=== PATIENT | female | born 1970 | race Caucasian/White ===

== ENCOUNTER → 2016-03-20 | Outpatient (CLI) | payer BC ==
[~2016-03-20] MED LIST: DUO-KAPS1 CAP PO; FOLIC ACID 11 MG/TA1 PO; MOTRIN 800800 MG/TAB PO; OMEGA 31000 MG PO
== END ==
LOC: BHSO 09:50
DX: F41.1 Generalized anxiety disorder (principal)

== ENCOUNTER → 2016-05-02 | Outpatient (CLI) | payer BC | LOC: BHSO 10:46 | DX: F33.1 Major depressive disorder, recurrent, moderate (principal) ==

== ENCOUNTER → 2016-05-10 | Outpatient (CLI) | payer BC | LOC: BHSO 08:50 | DX: F31.81 Bipolar II disorder (principal) ==

== ENCOUNTER → 2016-06-14 | Outpatient (CLI) | payer BC | LOC: BHSO 09:46 | DX: F33.1 Major depressive disorder, recurrent, moderate (principal) ==

== ENCOUNTER → 2016-06-19 | Outpatient (CLI) | payer BC | LOC: BHSO 09:05 | DX: F41.1 Generalized anxiety disorder (principal) ==

== ENCOUNTER → 2016-07-05 | Outpatient (CLI) | payer BC | LOC: BHSO 09:52 | DX: F31.81 Bipolar II disorder (principal) ==

== ENCOUNTER → 2016-08-23 | Outpatient (CLI) | payer BC | LOC: BHSO 08:51 | DX: F41.1 Generalized anxiety disorder (principal) ==

== ENCOUNTER → 2016-09-20 | Outpatient (CLI) | payer BC | LOC: BHSO 10:49 | DX: F41.1 Generalized anxiety disorder (principal) ==

== ENCOUNTER → 2016-10-04 | Outpatient (CLI) | payer BC | LOC: BHSO 08:55 | DX: F31.81 Bipolar II disorder (principal) ==

== ENCOUNTER → 2016-11-07 | Outpatient (CLI) | payer BC | LOC: BHSO 09:50 | DX: F31.81 Bipolar II disorder (principal) ==

== ENCOUNTER → 2017-02-27 | Outpatient (CLI) | payer BC ==
[2017-02-27 16:21] LABS: BASO % 0.3 % (0.0-2.0); EOS # 0.1 (0.0-0.7); GRAN # 6.5 (1.4-6.5); GRAN % 60.7 % (42.2-75.2); HEMATOCRIT 37.1 % (37.0-47.0); HEMOGLOBIN 12.7 g/dl (12.5-16.0); LYMPH # 3.4 (1.2-3.4); LYMPH % 31.6 % (20.0-51.0); MEAN CELL VOLUME 92 fl (80.0-100.0); MEAN CORPUSCULAR HEMOGLOBIN 32 pg (27.0-31.0); MEAN CORPUSCULAR HGB CONC 34 g/dl (33.0-37.0); MEAN PLATELET VOLUME 8.9 fl (7.4-10.4); MONO # 0.7 (0.1-0.6); PLATELET COUNT 436 K/mm3 (130-400); RED BLOOD COUNT 4.02 M/mm3 (4.10-5.30); WHITE BLOOD COUNT 10.8 K/mm3 (4.8-10.8)
[2017-02-27 16:40] LABS: ADJUSTED CALCIUM 8.8 mg/dL (8.4-10.2); ALBUMIN 3.6 gm/dL (3.5-5.0); BILIRUBIN,TOTAL 1.4 mg/dL (0.0-1.0); CALCIUM 8.5 mg/dL (8.4-10.2); CREATININE, serum 0.76 mg/dL (0.52-1.25); POTASSIUM 3.5 mmol/L (3.4-5.0); TOTAL PROTEIN 6.1 gm/dL (6.4-8.2)
== END ==
LOC: COL.LAB 15:53
PROVIDERS: Family Medicine
DX: R10.13 Epigastric pain (principal)

== ENCOUNTER → 2017-03-20 | Outpatient (CLI) | payer BC | LOC: BHSO 08:56 | DX: F31.81 Bipolar II disorder (principal) ==

== ENCOUNTER → 2017-03-21 | Outpatient (CLI) | payer BC | LOC: BHSO 10:43 | DX: F41.1 Generalized anxiety disorder (principal) | CPT/HCPCS: G0463 ==

== ENCOUNTER → 2017-09-17 | Outpatient (CLI) | payer BC | LOC: BHSO 08:55 | DX: F31.81 Bipolar II disorder (principal) ==

== ENCOUNTER → 2018-01-21 | Outpatient (CLI) | payer BC | LOC: BHSO 08:53 | DX: F31.81 Bipolar II disorder (principal) ==

== ENCOUNTER → 2018-03-17 | Outpatient (CLI) | payer BC | LOC: BHSO 10:38 | DX: F31.81 Bipolar II disorder (principal) ==

== ENCOUNTER → 2018-04-21 | Outpatient (CLI) | payer BC | LOC: BHSO 08:50 | DX: F31.81 Bipolar II disorder (principal) ==

== ENCOUNTER → 2018-08-11 | Outpatient (CLI) | payer BC | LOC: BHSO 08:51 | DX: F31.81 Bipolar II disorder (principal) ==

== ENCOUNTER → 2018-10-06 | Outpatient (CLI) | payer BC | LOC: BHSO 09:00 | DX: F31.81 Bipolar II disorder (principal) ==

== ENCOUNTER → 2018-11-28 | Outpatient (CLI) | payer BC | LOC: BHSO 15:51 | DX: F31.81 Bipolar II disorder (principal) ==

== ENCOUNTER → 2019-02-02 | Outpatient (CLI) | payer BC | LOC: BHSO 15:46 | DX: F31.81 Bipolar II disorder (principal) ==

== ENCOUNTER 2019-04-13 06:09 | Outpatient (CLI) | payer BC ==
[~2019-04-13] VITALS: Ht 162.6 cm; Wt 73.2 kg
[2019-04-13] VITALS (25 sets, daily range): BP systolic 93–136; BP diastolic 53–89; PULSE 52–87; TEMP 98.5
[~2019-04-13 06:09] MED LIST changes: -OMEGA 31000 MG PO; +OMEGA-3 1000 MG1 CAP PO
[2019-04-13 07:16] LABS: BASO # 0.1 (0.0-0.2); BASO % 1.1 % (0.0-2.0); EOS # 0.3 (0.0-0.7); EOS % 4.4 % (0-4.0); GRAN # 2.5 (1.4-6.5); HEMATOCRIT 38.8 % (37.0-47.0); HEMOGLOBIN 13.1 g/dl (12.5-16.0); LYMPH # 2.5 (1.2-3.4); LYMPH % 43.3 % (20.0-51.0); MEAN CELL VOLUME 91 fl (80.0-100.0); MEAN CORPUSCULAR HEMOGLOBIN 31 pg (27.0-31.0); MEAN CORPUSCULAR HGB CONC 34 g/dl (33.0-37.0); MEAN PLATELET VOLUME 8.8 fl (7.4-10.4); MONO # 0.4 (0.1-0.6); MONO % 7.2 % (1.7-9.3); PLATELET COUNT 272 K/mm3 (130-400); RED BLOOD COUNT 4.25 M/mm3 (4.10-5.30); REDCELL DISTRIBUTION WIDTH-CV 12.3 % (11.5-14.5)
[2019-04-13 07:18] LABS: INR 0.9 (0.8-3.0); PROTHROMBIN TIME 10.6 SECONDS (9.7-12.8)
[2019-04-13 07:21] LABS: PARTIAL THROMBOPLASTIN TIME 32.4 SECONDS (26.0-37.0)
[2019-04-13] MEDS ORDERED: TYLENOL 500MG500 MG PO (07:34)
[2019-04-13] MEDS ORDERED: MIRENA52 MG IY (07:35)
[2019-04-13] MEDS ORDERED: BRINTELLIX20 PO (07:37)
[2019-04-13] MEDS ORDERED: PROAIR HFA0.09 MG/AC IH (07:41)
--- NOTE | 2019-04-13 07:49 | NUR ---
Pt to procedure,report to KASANDRA Egan.
--- NOTE | 2019-04-13 07:55 | NUR ---
Pt to ct per bed. Pt ambulates into Ct and is placed prone on table. Monitors applied.
--- NOTE | 2019-04-13 08:08 | NUR ---
Specimens obtained by Dr Mejia and placed in padilla dish. Specimens taken to Dr Youngs to look at.
--- NOTE | 2019-04-13 14:54 | NUR ---
This nurse called Dr Mejia to verify if ok to discharge.Ok to discharge per Dr Mejia.Discharge instructions given to pt.Pt verbalizes understanding.INT removed,catheter tip intact.Pt escortedout via wheelchair by this nurse.
== END 2019-04-13 15:23 | disposition home or self-care (01) ==
LOC: COL.RAD 06:09
PROVIDERS: Internal Medicine Nephrology
DX: N04.9 Nephrotic syndrome with unspecified morphologic changes (principal)
CPT/HCPCS: J2250; J3010

== ENCOUNTER → 2019-04-17 | Outpatient (CLI) | payer BC, OTHER ==
[~2019-04-17] MED LIST changes: +BRINTELLIX20 PO; +MIRENA52 MG IY; +PROAIR HFA0.09 MG/AC IH; +TYLENOL 500MG500 MG PO
== END ==
LOC: COL.RAD 08:25
DX: N04.9 Nephrotic syndrome with unspecified morphologic changes (principal)

== ENCOUNTER → 2019-04-23 | Outpatient (CLI) | payer BC, OTHER | LOC: BHSO 15:56 | DX: F31.81 Bipolar II disorder (principal) ==

== ENCOUNTER → 2019-04-30 | Outpatient (CLI) | payer BC | LOC: COL.PUL 07:26 | DX: R06.00 Dyspnea, unspecified (principal) ==

== ENCOUNTER → 2019-08-11 | Outpatient (CLI) | payer BC | LOC: BHSO 08:50 | DX: F31.81 Bipolar II disorder (principal) ==

== ENCOUNTER → 2019-10-12 | Outpatient (CLI) | payer BC | LOC: BHSO 08:51 | DX: F31.81 Bipolar II disorder (principal) ==